=== PATIENT | male | born 2005 | race Two or more races ===

== ENCOUNTER 2023-07-11 09:59 | Day surgery (SDC) | payer MEDICAID ==
[~2023-07-11 09:59] MED LIST: Lactated Ringers 1,000 ML IV SCH
[2023-07-11] MEDS ORDERED: Bupivacaine 0.25%/EPINEPHrine 1:200,000 30 ML SDV ONE (10:36)
[2023-07-11] MEDS ORDERED: Dexamethasone 10 MG/ML SDV ONE (10:36)
[2023-07-11] MEDS ORDERED: Rocuronium 50 MG/5 ML Vial ONE (10:37)
[2023-07-11] MEDS ORDERED: Propofol 200 MG/20 ML SDV ONE (10:37)
[2023-07-11] MEDS ORDERED: fentaNYL 100 MCG/2 ML SDV ONE (10:37)
[2023-07-11] MEDS ORDERED: Lidocaine 1% 4 ML ONE (10:37)
[2023-07-11] MEDS ORDERED: Midazolam 1 MG/ML 2 ML SDV ONE (10:38)
[2023-07-11] MEDS ORDERED: ceFAZolin 2 GM Vial ONE (12:00)
[2023-07-11] MEDS ORDERED: Ondansetron 4 MG/2 ML SDV ONE (12:02)
[2023-07-11] MEDS ORDERED: Ketorolac 30 MG/ML SDV ONE (12:02)
[2023-07-11] MEDS ORDERED: Dexamethasone 4 MG/ML 5 ML MDV ONE (12:02)
[2023-07-11] MEDS ORDERED: Sugammadex Sodium 200 MG/2 ML VIAL ONE (12:26)
[2023-07-11] MEDS ORDERED: Lactated Ringers 1,000 ML IV ONE (12:45)
== END 2023-07-11 15:20 | disposition home or self-care (01) ==
LOC: JD.SDS 09:59
PROVIDERS: ATTEND Orthopaedic Surgery
DX: S42.021A Displaced fracture of shaft of right clavicle, initial encounter for closed fracture (principal); Z79.899 Other long term (current) drug therapy
CPT/HCPCS: 23515; 64415; 76000; C1713; J0690; J1100; J1885; J2250; J2405; J2704; J3010; J3490; J7120; 00450